=== PATIENT | female | born 1990 | race Hispanic/Latino ===

== ENCOUNTER 2021-02-05 03:03 | Emergency (ER) | payer SELFPAY ==
--- OUTSIDE RECORDS SUMMARY | 2021-02-05 03:07 | XMS REPORT | Continuity of Care Document ---
:1990 Author Organization [facility] t Address [address] [place] [address] Care Team Providers Name Role Phone Joe PERSAUD Attending Clinician Unavailable Joe PERSAUD Admitting Clinician Unavailable Problems This patient has no known problems. Allergies, Adverse Reactions, Alerts Allergy Allergy Status Severity Reaction(s) Onset Inactive Treating Comm ents Source Name Type Date Date Clinician No Known DA Active U [facility] Drug 3-25 Allergie 00:00: s 00 Opioids DA Active U Unknown [facility] - 3-25 Morphine 00:00: Analogue 00 s No Known DA Active U 2019-09 [facility] Drug 2-23 Allergie 00:00: s 00 Medications This patient has no known medications. Vital Signs Vital Name Observation Time Observation Value Comments Source 02 Sat by Pulse Oximetry 2020-12-18 02:36:03 98 /min Body Mass Index 2020-12-18 02:36:03 26.6 Height 2020-12-18 02:36:03 170.18\S\67 Pulse Rate 2020-12-18 02:36:03 83 /min Respiratory Rate 2020-12-18 02:36:03 16 /min Temperature 2020-12-18 02:36:03 36.7\S\98.1 Weight 2020-12-18 02:36:03 67972.703\S\2720 Weight Measurement Method 2020-12-18 02:36:03 Estimated by Patient 02 Sat by Pulse Oximetry 2020-12-15 22:52:57 98 /min Body Mass Index 2020-12-15 22:52:57 26.6 Height 2020-12-15 22:52:57 170.18\S\67 Pulse Rate 2020-12-15 22:52:57 83 /min Respiratory Rate 2020-12-15 22:52:57 16 /min Temperature 2020-12-15 22:52:57 36.7\S\98.1 Weight 2020-12-15 22:52:57 81234.703\S\2720 Weight Measurement Method 2020-12-15 22:52:57 Estimated by Patient 02 Sat by Pulse Oximetry 2020-12-15 21:53:13 98 /min Body Mass Index 2020-12-15 21:53:13 26.6 Height 2020-12-15 21:53:13 170.18\S\67 Pulse Rate 2020-12-15 21:53:13 83 /min Respiratory Rate 2020-12-15 21:53:13 16 /min Temperature 2020-12-15 21:53:13 36.7\S\98.1 Weight 2020-12-15 21:53:13 17070.703\S\2720 Weight Measurement Method 2020-12-15 21:53:13 Estimated by Patient 02 Sat by Pulse Oximetry 2020-12-15 18:37:11 98 /min Body Mass Index 2020-12-15 18:37:11 26.6 Height 2020-12-15 18:37:11 170.18\S\67 Pulse Rate 2020-12-15 18:37:11 83 /min Respiratory Rate 2020-12-15 18:37:11 16 /min Temperature 2020-12-15 18:37:11 36.7\S\98.1 Weight 2020-12-15 18:37:11 20518.703\S\2720 Weight Measurement Method 2020-12-15 18:37:11 Estimated by Patient 02 Sat by Pulse Oximetry 2020-12-15 18:06:12 98 /min Body Mass Index 2020-12-15 18:06:12 26.6 Height 2020-12-15 18:06:12 170.18\S\67 Pulse Rate 2020-12-15 18:06:12 83 /min Respiratory Rate 2020-12-15 18:06:12 16 /min Temperature 2020-12-15 18:06:12 36.7\S\98.1 Weight 2020-12-15 18:06:12 13152.703\S\2720 Weight Measurement Method 2020-12-15 18:06:12 Estimated by Patient 02 Sat by Pulse Oximetry 2020-12-15 17:15:49 98 /min Body Mass Index 2020-12-15 17:15:49 26.6 Height 2020-12-15 17:15:49 170.18\S\67 Pulse Rate 2020-12-15 17:15:49 83 /min Respiratory Rate 2020-12-15 17:15:49 16 /min Temperature 2020-12-15 17:15:49 36.7\S\98.1 Weight 2020-12-15 17:15:49 86408.703\S\2720 Weight Measurement Method 2020-12-15 17:15:49 Estimated by Patient 02 Sat by Pulse Oximetry 2020-12-15 16:24:10 98 /min Body Mass Index 2020-12-15 16:24:10 26.6 Height 2020-12-15 16:24:10 170.18\S\67 Pulse Rate 2020-12-15 16:24:10 83 /min Respiratory Rate 2020-12-15 16:24:10 16 /min Temperature 2020-12-15 16:24:10 36.7\S\98.1 Weight 2020-12-15 16:24:10 60621.703\S\2720 Weight Measurement Method 2020-12-15 16:24:10 Estimated by Patient 02 Sat by Pulse Oximetry 2020-12-15 15:46:21 98 /min Body Mass Index 2020-12-15 15:46:21 26.6 Height 2020-12-15 15:46:21 170.18\S\67 Pulse Rate 2020-12-15 15:46:21 83 /min Respiratory Rate 2020-12-15 15:46:21 16 /min Temperature 2020-12-15 15:46:21 36.7\S\98.1 Weight 2020-12-15 15:46:21 67347.703\S\2720 Weight Measurement Method 2020-12-15 15:46:21 Estimated by Patient WEIGHT 2020-12-15 15:43:00 77.700840 kg HEIGHT 2020-12-15 15:43:00 170.18 cm Respiratory 2020-09-15 22:52:19 No respiratory distress /min 02 Sat by Pulse Oximetry 2020-09-15 22:52:19 97 /min Height 2020-09-15 22:52:19 170.18\S\67 Pulse Rate 2020-09-15 22:52:19 78 /min Respiratory Rate 2020-09-15 22:52:19 16 /min Respiratory Depth 2020-09-15 22:52:19 Normal /min Respiratory Effort 2020-09-15 22:52:19 Non-Labored /min Respiratory Pattern 2020-09-15 22:52:19 Normal /min Temperature 2020-09-15 22:52:19 36.6\S\97.9 Respiratory 2020-09-14 13:55:44 No respiratory distress /min 02 Sat by Pulse Oximetry 2020-09-14 13:55:44 97 /min Height 2020-09-14 13:55:44 170.18\S\67 Pulse Rate 2020-09-14 13:55:44 78 /min Respiratory Rate 2020-09-14 13:55:44 16 /min Respiratory Depth 2020-09-14 13:55:44 Normal /min Respiratory Effort 2020-09-14 13:55:44 Non-Labored /min Respiratory Pattern 2020-09-14 13:55:44 Normal /min Temperature 2020-09-14 13:55:44 36.6\S\97.9 Respiratory 2020-09-14 13:37:34 No respiratory distress /min 02 Sat by Pulse Oximetry 2020-09-14 13:37:34 97 /min Height 2020-09-14 13:37:34 170.18\S\67 Pulse Rate 2020-09-14 13:37:34 78 /min Respiratory Rate 2020-09-14 13:37:34 16 /min Respiratory Depth 2020-09-14 13:37:34 Normal /min Respiratory Effort 2020-09-14 13:37:34 Non-Labored /min Respiratory Pattern 2020-09-14 13:37:34 Normal /min Temperature 2020-09-14 13:37:34 36.6\S\97.9 Respiratory 2020-09-14 13:36:02 No respiratory distress /min 02 Sat by Pulse Oximetry 2020-09-14 13:36:02 97 /min Height 2020-09-14 13:36:02 170.18\S\67 Pulse Rate 2020-09-14 13:36:02 78 /min Respiratory Rate 2020-09-14 13:36:02 16 /min Respiratory Depth 2020-09-14 13:36:02 Normal /min Respiratory Effort 2020-09-14 13:36:02 Non-Labored /min Respiratory Pattern 2020-09-14 13:36:02 Normal /min Temperature 2020-09-14 13:36:02 36.6\S\97.9 Respiratory 2020-09-14 12:15:15 No respiratory distress /min 02 Sat by Pulse Oximetry 2020-09-14 12:15:15 97 /min Height 2020-09-14 12:15:15 170.18\S\67 Pulse Rate 2020-09-14 12:15:15 78 /min Respiratory Rate 2020-09-14 12:15:15 16 /min Respiratory Depth 2020-09-14 12:15:15 Normal /min Respiratory Effort 2020-09-14 12:15:15 Non-Labored /min Respiratory Pattern 2020-09-14 12:15:15 Normal /min Temperature 2020-09-14 12:15:15 36.6\S\97.9 Respiratory 2020-09-14 11:35:33 No respiratory distress /min 02 Sat by Pulse Oximetry 2020-09-14 11:35:33 96 /min Height 2020-09-14 11:35:33 170.18\S\67 Pulse Rate 2020-09-14 11:35:33 90 /min Respiratory Rate 2020-09-14 11:35:33 16 /min Respiratory Depth 2020-09-14 11:35:33 Normal /min Respiratory Effort 2020-09-14 11:35:33 Non-Labored /min Respiratory Pattern 2020-09-14 11:35:33 Normal /min Temperature 2020-09-14 11:35:33 2.6\S\36.7 02 Sat by Pulse Oximetry 2020-09-14 09:32:00 96 /min Height 2020-09-14 09:32:00 170.18\S\67 Pulse Rate 2020-09-14 09:32:00 90 /min Respiratory Rate 2020-09-14 09:32:00 16 /min Respiratory Depth 2020-09-14 09:32:00 Normal /min Respiratory Effort 2020-09-14 09:32:00 Non-Labored /min Respiratory Pattern 2020-09-14 09:32:00 Normal /min Temperature 2020-09-14 09:32:00 2.6\S\36.7 02 Sat by Pulse Oximetry 2020-09-14 08:25:49 96 /min Height 2020-09-14 08:25:49 170.18\S\67 Pulse Rate 2020-09-14 08:25:49 90 /min Respiratory Rate 2020-09-14 08:25:49 16 /min Respiratory Depth 2020-09-14 08:25:49 Normal /min Respiratory Effort 2020-09-14 08:25:49 Non-Labored /min Respiratory Pattern 2020-09-14 08:25:49 Normal /min Temperature 2020-09-14 08:25:49 2.6\S\36.7 02 Sat by Pulse Oximetry 2020-09-14 07:49:45 96 /min Height 2020-09-14 07:49:45 170.18\S\67 Pulse Rate 2020-09-14 07:49:45 90 /min Respiratory Rate 2020-09-14 07:49:45 16 /min Respiratory Depth 2020-09-14 07:49:45 Normal /min Respiratory Effort 2020-09-14 07:49:45 Non-Labored /min Respiratory Pattern 2020-09-14 07:49:45 Normal /min Temperature 2020-09-14 07:49:45 2.6\S\36.7 02 Sat by Pulse Oximetry 2020-09-14 07:39:01 96 /min Height 2020-09-14 07:39:01 170.18\S\67 Pulse Rate 2020-09-14 07:39:01 90 /min Respiratory Rate 2020-09-14 07:39:01 16 /min Temperature 2020-09-14 07:39:01 2.6\S\36.7 02 Sat by Pulse Oximetry 2020-09-14 07:29:46 96 /min Height 2020-09-14 07:29:46 170.18\S\67 Pulse Rate 2020-09-14 07:29:46 90 /min Respiratory Rate 2020-09-14 07:29:46 16 /min Temperature 2020-09-14 07:29:46 2.6\S\36.7 HEIGHT 2020-09-14 07:26:00 170.18 cm Procedures This patient has no known procedures. Results Test Description Test Time Test Comments Results Result Comments Source Rubella Screen 2016-12-15 02:14:00 Test Item Value Reference Range Interpretation Comme nts Rubella IgG (test code = RUBELIGG) Immune Immune N RPR, [id number] 02:14:00 Test Item Value Reference Range Interpretation Comments RPR (test code = RPR) Non-Reactive Non-Reactive N [id number] 00:22:00 Test Item Value Reference Range Interpretation Comments WBC (test code = WBC) 11.5 K/cumm 4.4-10.5 H RBC (test code = RBC) 3.46 M/cumm 3.75-5.20 L Hemoglobin (test code = HGB) 8.3 gm/dL 12.2-14.8 L Hematocrit (test code = HCT) 27.6 % 36.5-44.4 L MCV (test code = MCV) 79.7 fL 80-100 L MCH (test code = MCH) 24.0 pg 27.0-32.5 L MCHC (test code = MCHC) 30.1 g/dL 32.0-37.5 L RDW (test code = RDW) 17.9 % 11.5-14.5 H Platelet Count (test code = 183 K/cumm 140-440 N PLTCT) MPV (test code = MPV) 10.0 fL Hep B Surface [id number] 13:27:00 Test Item Value Reference Range Interpretation Comments Hep Bs Ag (test code = HBSAG) Nonreactive Non-Reactive A [id number] 13:07:00 Test Item Value Reference Range Interpretation Comments Amphetamine (test code Negative Negative N For d iagnostic purposes = AMPH) only, positive results should always b e assessedin conjunctionwith the patient's medic al history,clinica l examination and otherfindings.T o fulfill legal requirements, a more specific altern ate chemical method must be used inorder to obtain a Confirmed alessandra lytical result. GC/MS i s the preferred confi rmatory method. Barbiturates (test Negative Negative N code = WILLIAM) Benzodiazepine (test Negative Negative N code = CAMERON) Cocaine (test code = Negative Negative N COCA) Methadone (test code = Negative Negative N MTHD) Opiates (test code = Negative Negative N OPIA) PCP (test code = PCP) Negative Negative N Propoxyphene (test Negative Negative N code = PROPOX) THC (test code = THC) Negative Negative N CBC LD with [id number] 12:52:00 Test Item Value Reference Range Interpretation Comments WBC (test code = WBC) 11.6 K/cumm 4.4-10.5 H RBC (test code = RBC) 3.78 M/cumm 3.7-5.2 N Hemoglobin (test code = HGB) 9.2 g/dL 12.2-14.8 L Hematocrit (test code = HCT) 29.9 % 36.5-44.4 L MCV (test code = MCV) 79.1 fL 80.0-100.0 L MCH (test code = MCH) 24.2 pg 27.0-32.5 L MCHC (test code = MCHC) 31 g/dL 32-37 L RDW (test code = RDW) 18.0 % 11.5-14.5 H Platelet Count (test code = 203 K/cumm 140-440 N PLTCT) MPV (test code = MPV) 9.6 fL Diff Method (test code = DIFFM) Auto Neutrophil (test code = NEUT) 79.8 % 36.0-70.0 H Lymphocyte (test code = LYMPH) 13.6 % 12.0-44.0 N Monocyte (test code = MONO) 5.7 % 0.0-11.0 N Eosinophil (test code = EOS) 0.7 % 0.0-7.0 N Basophil (test code = BASO) 0.2 % 0.0-2.0 N Neutro Abs (test code = ANEUT) 9.2 K/cumm 1.6-7.4 H Lymph Abs (test code = ALYMPH) 1.6 K/cumm 0.5-4.6 N Mathews Abs (test code = AMONO) 0.7 K/cumm 0.0-1.2 N Eos Abs (test code = AEOS) 0.1 K/cumm 0.0-0.7 N Baso Abs (test code = ABASO) 0.0 K/cumm 0.0-0.2 N Anisocytosis (test code = ANISO) Slight Hypochromic (test code = HYPO) Slight Blood [id number] 12:22:00 Test Item Value Reference Range Interpretation Comments pH, Blood Gas (test 7.295 pH Units code = BGPH) pCO2 (test code = PCO2) 55.2 mm Hg pO2 (test code = PO2) 10.4 mm Hg PO2 is not a reliable measurement of the patient's oxygenation. Reference range not established for this test. Bicarbonate (test code 26.8 mmol/L = HCO3) Base Excess (test code -0.1 mmol/L = BE) O2 Saturation (test 15.3 % % O2SAT is not a code = O2SAT) reliable measurement of the patient's oxygenation.Ref er ence range not established for this test. tHB (test code = RTHB) 14.0 gm/dL Hematocrit, Blood Gas 42.8 % (test code = BGHCT) O2Hb (test code = 15 RO2HB) Carboxyhemoglobin (test 2.2 % code = CARHGB) Methemoglobin (test 1.8 % code = METHGB) Patient Temperature 37.0 Degrees (test code = PTTEMP) Celcius Puncture Site (test Umbilical code = PUNSITE) Respiratory Rate (test 0 code = RESP RATE) POC Glucose, [id number] 12:04:00 Test Item Value Reference Range Interpretation Comments POC Glucose (test code 49 mg/dL 70-115 LL Notif y RN or Curtiso = POCGLUC) specimen
[2021-02-05 04:04] LABS: Absolute Lymphocytes (CBC) 1.8 K/uL (0.7-4.9); Basophils % 0.7 % (0-1.3); Hematocrit 39.4 % (36.0-45.0); Lymphocytes % 26.2 % (15.3-44.8); MPV 9.4 fL (7.6-11.3); RBC Red Blood Cell Count 4.17 M/uL (3.86-4.86)
[2021-02-05 04:12] LABS: Protime INR 0.96
[2021-02-05 04:20] LABS: ALT/SGPT 17 U/L (12-78); AST/SGOT 11 U/L (15-37); Albumin 3.4 g/dL (3.4-5.0); Alkaline Phosphatase 47 U/L (45-117); BUN Blood Urea Nitrogen 8 mg/dL (7-18); Bicarbonate 29 mmol/L (21-32); Bilirubin Direct < 0.1 mg/dL (0-0.2); Bilirubin Total 0.3 mg/dL (0.2-1.0); Glucose Level 91 mg/dL (74-106); Potassium 3.7 mmol/L (3.5-5.1); Sodium Level 142 mmol/L (136-145)
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
[2021-02-05 05:13] VITALS: BP 105/78; O2SAT 100
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
== END 2021-02-05 05:01 | disposition left against medical advice (07) ==
LOC: ER 03:03
DX: M25.572 Pain in left ankle and joints of left foot (principal); V47.6XXA Car passenger injured in collision with fixed or stationary object in traffic accident, initial encounter; F17.210 Nicotine dependence, cigarettes, uncomplicated; Z88.5 Allergy status to narcotic agent
CPT/HCPCS: 36415; 80048; 80076; 84703; 85025; 85610; 85730; 86850; 86900; 86901; 99284; G0390